=== PATIENT | male | born 1970 | race African-American/Black ===

== ENCOUNTER 2019-03-27 14:33 | Emergency (ER) | payer OTHER ==
[~2019-03-27] VITALS: Ht 177.8 cm; Wt 68.0 kg
[2019-03-27 14:33] VITALS: BP 143/90
[~2019-03-27 14:33] MED LIST: IBUPROFEN 600600 M1 PO; NORFLEX100 MG PO
[2019-03-27] MEDS ORDERED: NORFLEX100 MG PO (14:52)
[2019-03-27] MEDS ORDERED: NAPROSYN500 MG PO (14:52)
== END 2019-03-27 15:25 | disposition home or self-care (01) ==
LOC: ER 14:33
DX: S29.012A Strain of muscle and tendon of back wall of thorax, initial encounter (principal); F17.210 Nicotine dependence, cigarettes, uncomplicated; X58.XXXA Exposure to other specified factors, initial encounter; Y93.89 Activity, other specified; Y92.89 Other specified places as the place of occurrence of the external cause; Y99.8 Other external cause status